=== PATIENT | female | born 1965 | race Caucasian/White ===

== ENCOUNTER 2019-09-21 06:10 | Day surgery (SDC) | payer OTHER ==
[~2019-09-21] VITALS: Ht 157.5 cm; Wt 194.5 kg
[~2019-09-21 06:10] MED LIST: BUDE10.2 IH; CELE200 PO; DIVA-76 PO; FLUO-191 PO; GABA-531 PO; INSU500V IJ; LEVO75 PO; OMEP20 PO; SODIUM CHLORIDE 0.9% 1,000 ML ONE; TRAM50TA4 PO
[2019-09-21] MEDS ORDERED: LIDOCAINE 2% 30 ML JELLY TP ONE (06:11)
[2019-09-21] MEDS ORDERED: BENZOCAINE 20% 50 MCG/SPRAY 57 GM TP ONE (06:11)
[2019-09-21] MEDS ORDERED: LIDOCAINE 2% 5 ML JELLY TP ONE (06:11)
[2019-09-21] MEDS ORDERED: ALBUTEROL SULFATE 2.5 MG/0.5 ML NEB SOLUTION NEB ONE (06:11)
[2019-09-21] MEDS ORDERED: LIDOCAINE 4% 50 ML SOLUTION TP ONE (06:11)
[2019-09-21] MEDS ORDERED: SODIUM CHLORIDE 0.9% 1,000 ML IV ONE (07:00)
[2019-09-21 07:19] LABS: GLUCOMETER DEV NAME(LOC) SDS.; GLUCOSE,POINT OF CARE 206 MG/DL (70-110)
[2019-09-21] MEDS ORDERED: AMIT50TA3 PO (07:32)
[2019-09-21] MEDS ORDERED: PANT40TA25 PO (07:32)
[2019-09-21] MEDS ORDERED: BACL10TA PO (07:32)
[2019-09-21] MEDS ORDERED: LISI-661 PO (07:32)
[2019-09-21] MEDS ORDERED: CHOL200059 PO (07:32)
[2019-09-21] MEDS ORDERED: MIDAZOLAM HCL 2 MG/2 ML VIAL ONE (08:05)
[2019-09-21] MEDS ORDERED: FentaNYL CITRATE-PF 100 MCG/2 ML VIAL ONE (08:05)
[2019-09-21] MEDS ORDERED: MethylPREDNISolone SOD SUCC 125 MG/2 ML VIAL IVP ONE (09:00)
[2019-09-21] MEDS ORDERED: OXYGEN THERAPY IH SCH (20:00)
== END 2019-09-21 11:25 | disposition home or self-care (01) ==
LOC: SURGERY 06:10
PROVIDERS: ATTEND Internal Medicine Critical Care Medicine
DX: R05 Cough (principal); R91.1 Solitary pulmonary nodule; J34.89 Other specified disorders of nose and nasal sinuses; J98.8 Other specified respiratory disorders; J38.4 Edema of larynx; B37.0 Candidal stomatitis; R19.09 Other intra-abdominal and pelvic swelling, mass and lump; Z79.899 Other long term (current) drug therapy
CPT/HCPCS: 31623; 31624; 71045; 82962; 87015; 87070; 87101; 87205; 87206; 87220; 88184; 88185; J2250; J2930; J3010; J7030; 88108; 88312